=== PATIENT | male | born 1980 | race Caucasian/White ===

== ENCOUNTER 2019-05-13 13:56 | Outpatient (RCR) | payer BC | END 2019-05-15 | LOC: PT 13:56 | PROVIDERS: ATTEND Psychiatry & Neurology Clinical Neurophysiology | DX: G60.3 Idiopathic progressive neuropathy (principal); R26.89 Other abnormalities of gait and mobility; M62.81 Muscle weakness (generalized) ==

== ENCOUNTER 2019-06-02 14:00 | Outpatient (RCR) | payer BC | END 2019-06-14 | LOC: PT 14:00 | PROVIDERS: ATTEND Psychiatry & Neurology Clinical Neurophysiology | DX: G60.3 Idiopathic progressive neuropathy (principal); R26.89 Other abnormalities of gait and mobility; M62.81 Muscle weakness (generalized) ==

== ENCOUNTER 2019-06-30 10:00 | Outpatient (RCR) | payer BC | END 2019-07-15 | LOC: PT 10:00 | PROVIDERS: ATTEND Psychiatry & Neurology Clinical Neurophysiology | DX: G60.3 Idiopathic progressive neuropathy (principal); M62.81 Muscle weakness (generalized); R26.89 Other abnormalities of gait and mobility ==

== ENCOUNTER → 2019-07-23 | Outpatient (CLI) | payer BC | LOC: SLEEP 20:16 | PROVIDERS: ATTEND Family Medicine | DX: G47.52 REM sleep behavior disorder (principal); G43.119 Migraine with aura, intractable, without status migrainosus; G44.41 Drug-induced headache, not elsewhere classified, intractable; G60.3 Idiopathic progressive neuropathy | CPT/HCPCS: 95810 ==

== ENCOUNTER 2020-01-20 05:25 | Observation (INO) | payer BC ==
--- NOTE | 2020-01-17 10:29 | Diagnostic Imaging Report ---
EXAMINATION: CHEST 2 VIEWS INDICATION: Pre-operative COMPARISON: None FINDINGS: LINES/TUBES:None LUNGS:The lungs are hyperinflated. No focal consolidation or pulmonary edema. PLEURA:No pleural effusion or pneumothorax. MEDIASTINUM:The cardiomediastinal silhouette appears normal in size and shape. BONES/SOFT TISSUES:No acute osseous injury. Pectus excavatum. ABDOMEN:No free air under the diaphragm. IMPRESSION: Hyperinflated lungs and pectus excavatum. No focal pneumonia or pulmonary edema. Signed by: Priscilla Monroe MD on 01/17/2020 10:26 AM
[2020-01-17 10:39] LABS: BASOPHILS # (AUTO) 0.1 (0.0-0.1); BASOPHILS % 0.6 % (0.0-1.0); EOSINOPHILS % 0.5 % (0.0-6.0); HEMATOCRIT 46.6 % (38.2-49.6); HEMOGLOBIN 16.2 g/dL (14.0-18.0); LYMPHOCYTES # (AUTO) 1.5 (1.0-3.2); LYMPHOCYTES % 19.1 % (18.0-39.1); MEAN CORPUSCULAR HEMOGLOBIN 32.6 pg (28-32); MEAN CORPUSCULAR HGB CONC 34.8 g/dL (31-35); MEAN CORPUSCULAR VOLUME 93.8 fL (81-99); MONOCYTES # (AUTO) 0.7 (0.2-0.8); MONOCYTES % 8.5 % (4.4-11.3); NEUTROPHILS # (AUTO) 5.7 (2.1-6.9); NEUTROPHILS % 70.8 % (38.7-80.0); PLATELET COUNT 225 x10e3/uL (140-360); RED BLOOD COUNT 4.97 x10e6/uL (4.3-5.7); RED CELL DISTRIBUTION WIDTH 14.2 % (11.7-14.4)
[2020-01-17 10:57] LABS: INR 0.87; PROTHROMBIN TIME 12.3 seconds (11.9-14.5)
[2020-01-17 10:58] LABS: PARTIAL THROMBOPLASTIN TIME 22.4 seconds (23.8-35.5)
[2020-01-17 11:02] LABS: ANION GAP 14.1 mmol/L (8-16); BLOOD UREA NITROGEN 11 mg/dL (7-26); BUN/CREATININE RATIO 14 (6-25); CALCIUM 8.9 mg/dL (8.4-10.2); CARBON DIOXIDE 27 mmol/L (22-29); CHLORIDE 103 mmol/L (98-107); CREATININE, SERUM 0.78 mg/dL (0.72-1.25); EST GLOMERULAR FILTRATION RATE > 60 ML/MIN (60-); GLUCOSE 94 mg/dL (74-118); POTASSIUM 4.1 mmol/L (3.5-5.1); SODIUM 140 mmol/L (136-145)
[~2020-01-20] VITALS: Ht 193 cm; Wt 74.4 kg
[~2020-01-20 05:25] MED LIST: ATENOLOL50 MG PO; BACLOFEN10 MG PO; METHYLPREDNISOLO4 M1 PO; NUVIGIL200 MG PO; PROMETHAZINE HC25 M1 PO; REMICADE100 MG/VIA IV; SOMA350 MG PO; ULTRAM 50MG50 MG PO
--- OUTSIDE RECORDS SUMMARY | 2020-01-20 05:32 | XMS REPORT ---
Author Author [facility] Organization [facility] Address Unknown Phone Unavailable Care Team Providers Care Counter Supervisor Name Role Phone YARA DAWN DO PP PORFIRIO MCDUFFIE Unavailable Unavailable Payers Payer Name Policy Type Policy Number Effective Date Expiration D ate [employer] [place] P[place] [id number] 2018 00:00:00 [employer] [place] P[place] [id number] [employer] [place] P[place] [id number] Problems This patient has no known problems. Allergies, Adverse Reactions, Alerts Allergy Name Allergy Type Status Severity Reaction(s) Onset Date Inacti ve Date Treating Clinician Comments secukinumab DA Active GA 2019-03-16 00:00:00 No Known Allergies DA Active U 2017-04-02 00:00:00 Medications This patient has no known medications. Encounters Start Date/Time End Date/Time [facility]counter ID 2019-06-30 10:00:00 2019-07-15 23:59:00 Discharged Recurring [facility] [id number] 2019-05-20 15:17:00 2019-06-14 23:59:00 Discharged Recurring [facility] [id number] 2019-05-13 13:56:00 2019-05-15 23:59:00 Discharged Recurring [facility] [id number] Results Test Description Test Time Test Comments Text Results Atomic Results Result Comments CHEST 2 VIEWS 2020-01-17 10:24:00 [place] [address] Patient Name: ZELDA MULLER MR #: [id number] : 1980 Age/Sex: 39/M Req #: [id number] Adm Physician: Ordered by: PORFIRIO MCDUFFIE MD Report #: [id number] Location: OR Room/Bed: Procedure: [id number] DX/CHEST 2 VIEWS Exam Date: 01/17/20 Exam Time: 1009 REPORT STATUS: Signed EXAMINATION: CHEST 2 VIEWS INDICATION: Pre-operative COMPARISON: None FINDINGS: LINES/TUBES:None LUNGS:The lungs are hyperinflated. No focal consolidation or pulmonary edema. PLEURA:No pleural effusion or pneumothorax. MEDIA STINUM:The cardiomediastinal silhouette appears normal in size and shape. BONES/SOFT TISSUES:No acute osseous injury. Pectus excavatum. ABDOMEN:No free air under the diaphragm. IMPRESSION: Hyperinflated lungs and pectus excavatum. No focal pneumonia or pulmonary edema. Signed by: Elsa Medina MD on 01/17/2020 10:26 AM Dictated By: ELSA MEDINA MD 1026 Transcribed By: LILIAN on 01/17/20 1026 COPY TO: PORFIRIO MCDUFFIE MD - CT ABD PELVIS W/CONT 2019-03-16 22:20:00 Nam e: ZELDA MULLER [facility] : 1980 Age/S: 38 / M [address] [facility] Unit #: [id number] Loc: [place] [address] Phys: Kamilah Peace DO Acct: [id number] Dis Date: Status: REG ER PHONE #: [phone] Exam Date: 03/16/20192205 FAX #: [phone] Reason: ABD PAIN, TRAUMA EXAMS: CPT CODE: [id number] CT ABD PELVIS W/CONT 36793 REASON FOR EXAM: ABD PAIN, TRAUMA EXAM ORDER DATE: 03/16/2019 8:20 PM Ordering Makenna: Kamilah Peace DO PROCEDURE: - CT ABD PELVIS W/CONT COMPARISON: FINDINGS: CT images of the abdomen and pelvis were obtained with IV and without oral contrast at 5mm. Dose modulation, iterative reconstruction, and/or weight based adjustment of the MA/KV was utilized to reduce the radiation dose to as low as reasonably achievable. Intravenous contrast: 100cc of Omnipaque 370. The liver, spleen, pancreas are grossly within normal limits. The patient is status post cholecystectomy The left kidney is unremarkable. The right kidney located within the upper pelvis. The urinary bladder is unremarkable. The colon, small bowel, and stomach are within normal limits without evidence of obstruction. The appendix is unremarkable. No evidence of free air or free fluid. The uterus is unremarkable. IMPRESSION: No acute findings in the abdomen at 2220 Reported and signed by: Leo Burkett M.D. CC: Yara Dawn DO; Kamilah Peace DO Technologist:Daxa Burrows RT(R); MARYLIN Tobar CTDI: DLP: Trnscb Date/Time: 03/16/2019 (2220) [email or web address] Orig Print D/T: S: 03/16/2019 (6068) PAGE 1 Signed Report - CT CHEST W/CONTRAST 2019-03-16 22:18:00 Name : ZELDA MULLER [facility] : 1980 Age/S: 38 / M [address] [facility] Unit #: [id number] Loc: [place] [address] Phys: Kamilah Peace DO Acct: [id number] Dis Date: Status: REG ER PHONE #: [phone] Exam Date: 03/16/20192205 FAX #: [phone] Reason: CHEST PAIN, TRAUMA EXAMS: CPT CODE: [id number] CT CHEST W/CONTRAST 66801 REASON FOR EXAM: CHEST PAIN, TRAUMA EXAM ORDER DATE: 03/16/2019 8:20 PM Ordering Makenna: Kamilah Peace DO PROCEDURE: - CT CHEST W/CONTRAST FINDINGS: CT images of the chest were obtained with IV contrast. Reconstructed sagittal and coronal images of the chest were provided for interpretation. Dose modulation, iterative reconstruction, and/or weight based adjustment of the MA/KV was utilized to reduce the radiation dose to as low as r easonably achievable. Intravenous contrast: 100cc of Omnipaque 370. The heart size is within normal limits. No evidence of pericardial effusion The thoracic aorta is unremarkable. No evidence of dissection or aneurysmal dilatation. No filling defect seen within the main or lobar pulmonary arteries to suggest pulmonary embolus. No evidence of mediastinal or hilar adenopathy. The lungs are clear. No evidence of pleural effusion IMPRESSION: Deformity of the chest wall suggestive of pectus excavatum. No acute findings in the chest at 2218 Reported and signed by: Leo Burkett M.D. CC: Yara Dawn DO; Kamilah Peace DO Technologist:Daxa ONTIVEROS); MARYLIN Tobar CTDI: DLP: Trnscb Date/Time: 03/16/2019 (2218) [email or web address] Orig Print D/T: S: 03/16/2019 (1912) PAGE 1 Signed Report PROTHROMBIN TIME 2019-03-16 21:51:00 PROTHROMBIN TIME PATIENT (test code = PTP) 11.8 seconds 9.0-1 4.0 INTERNATIONAL NORMAL RATIO (test code = INR) 1.0 0.8 -1.2 The therapeutic range for oral anticoagulant therapy formost indications is an international normalized ratio (INR)of between 2.0 and 3.0. The recommended therapeutic INRrange for various clinical situations is listed below: Clinical Situation INR range Pulmonary e mbolism treatment (2.0-3.0)Venous thrombosis treatmentVenous thrombosis prophylaxis (high risk surgery)Prevention of systemic embolism from: Acute myocardial infarction Valvular heart disease Atrial fibrillation Mechanical prosthetic heart valves (2.5-3.5) IS PATIENT ON ANTICOAGULANTS? NTHROMBOPLASTIN TIME [id number] 21:51:00* Test Item Value Reference Range Comments THROMBOPLASTIN TIME PARTIAL (test code = PTT) 26.3 seconds 25 .0-36.5 IS PATIENT ON ANTICOAGULANTS? N- XR CHEST 1 [id number] 21:48:00 FAX: Yara Lyon DO [phone] [place]: St: [facility] FAX: Kamilah Peace DO Name: ZELDA MULLER [facility] : 1980 Age/S: 38/M [address] [facility] Unit #: [id number] Loc: [place] [address] Phys: Kamilah Peace DO Acct: [id number] Dis Date: Status: REG ER PHONE #: [phone] Exam Date: 03/16/20192141 FAX #: [phone] Reason: CHEST PAIN EXAMS: CPT CODE: [id number] XR CHEST 1 V 48619 REASON FOR EXAM: CHEST PAIN EXAM ORDER DATE: 03/16/2019 8:20 PM Ordering Makenna: Kamilah Peace DO PROCEDURE: - XR CHEST 1 V COMPARISON: FINDINGS: Portable AP frontal view of the chest obtained at 9:32 PM shows clear catarina ngs without evidence of consolidation. There is no evidence of effusion. T he heart size is within normal limits. Pulmonary vasculatures are unremark able. IMPRESSION: No active disease. at 2147 Reported a nd signed by: Leo Burkett M.D. CC: Yara Dawn DO; Kamilah Peace DO Technologist: Marylin LEYVA(Milvia) Trnscrd Date/Time/By: 03/16/2019 (2147) : By: KrystalL Orig Print D/T: S: 03/16/2019 (1803) PAGE 1 Signed Report - XR T-SPINE 3 VIEWS 2019-03-16 21:48:00 FAX: Yara Lyon DO [phone] [place]: St: REG FAX: Kamilah Peace DO Name: ZELDA MULLER [facility] : 1980 Age/S: 38/M [address] Unit #: [id number] Loc: [place] [address] Phys: Kamilah Peace DO Acct: [id number] Dis Date: Status: REG ER PHONE #: [phone] Exam Date: 03/16/20192141 FAX #: [phone] Reason: BACK PAIN EXAMS: CPT CODE: [id number] XR T-SPINE 3 VIEWS 52123 REASON FOR EXAM: BACK PAIN EXAM ORDER DATE: 03/16/2019 8:20 PM Ordering Makenna: Kamilah Peace DO PROCEDURE: - XR T-SPINE 3 VIEWS FINDINGS: 3 views of the thoracic spine were obtained. There is normal alignment of the thoracic spine. The vertebral bodies are unremarkable in size and shape. The disc spaces are maintained. No evidence of fracture. IMPRESSION: Unremarkable thoracic spine at 2148 Reported and signed by: Leo Burkett M.D. CC: Yara Dawn DO; Kamilah Peace DO Technologist: Marylin LEYVA(Milvia) Trnscrd Date/Time/By: 03/16/2019 (2147) : By: [email or web address] Orig Print D/T: S: 03/16/2019 (8) PAGE 1 Signed Report - XR L-SPINE 2/3 [id number] 21:47:00 FAX: Y Yara Dawn DO [phone] [place]: B St: REG FAX: Kamilah Peace DO Name: ZELDA MULLER [facility] : 1980 Age/S: 38/M [address] [facility] Unit #: [id number] Loc: [place] [address] Phys: Kamilah Peace DO Acct: [id number] Dis Date: Status: REG ER PHONE #: [phone] Exam Date: 03/16/20192141 FAX #: [phone] Reason: BACK PAIN EXAMS: CPT CODE: [id number] XR L-SPINE 2/3 VIEWS 04885 REASON FOR EXAM: BACK PAIN EXAM ORDER DATE: 03/16/2019 8:20 PM Ordering Makenna: Kamilah Peace DO PROCEDURE: - XR L-SPINE 2/3 VIEWS FINDINGS: 3 views of the lumbar spine were obtained. There is normal alignment of the lumbar spine. The vertebral bodies are unremarkable in size and shape. T he disc spaces are maintained. No evidence of fracture. IMPRESSION: Unremarkable lumbar spine at 2147 Reported and signed by: Jakob Burkett M.D. CC: Yara Dawn DO; Kamilah Peace DO Technologist: Marylin LEYVA(R) Trnscrd Date/Time/By: 03/16/2019 (2146) : By: KrystalL Orig Print D/T: S: 03/16/2019 (9224) PAGE 1 Signed Report - XR PELVIS 1/2 [id number] 21:47:00 FAX: Yara Lyon DO [phone] [place]: B St: REG FAX: Kamilah Peace DO Name: ZELDA MULLER [facility] : 1980 Age/S: 38/M [address] [facility] Unit #: [id number] Loc: [place] [address] Phys: Kamilah Peace DO Acct: [id number] Dis Date: Status: REG ER PHONE #: [phone] Exam Date: 03/16/20192141 FAX #: [phone] Reason: PELVIC PAIN EXAMS: CPT CODE: [id number] XR PELVIS 1/2 VIEWS 75018 REASON FOR EXAM: PELVIC PAIN EXAM ORDER DATE: 03/16/2019 8:20 PM Ordering Makenna: Kamilah Peace DO PROCEDURE: - XR PELVIS 1/2 VIEWS FINDINGS: 1 view of the pelvis was obtained. The osseous structures are unremarkable in size and shape. The joint spaces are maintained. No evidence of fracture. There is normal alignment of the hip joint. The sacroiliac joints are grossly intact IMPRESSION: Unremarkable pelvis at 2147 Reported and signed by: Leo Burkett M.D. CC: Yara Dawn DO; Kamilah Peace DO Technologist: Marylin Giordano RT(R) Trnscrd Date/Time/By: 03/16/2019 (2146) : By: AriVTL Orig Print D/T: S: 03/16/2019 (3840) PAGE 1 Signed Report BASIC METABOLIC [id number] 21:46:00* Test Item Value Reference Range Comments SODIUM (test code = NA) 139 mmol/L 136-145 POTASSIUM (test code = K) 3.5 mmol/L 3.5-5.1 CHLORIDE (test code = CL) 107.0 mmol/L 98-107 CARBON DIOXIDE (test code = CO2) 24.0 mmol/L 21-32 ANION GAP (test code = GAP) 11.5 10-20 GLUCOSE (test code = GLU) 102 mg/dL 74-106 BLOOD UREA NITROGEN (test code = BUN) 9 mg/dL 7-18 GLOMERULAR FILTRATION RATE (test code = GFR) > 60 mL/min >=6 0 Estimated GFR by using Modified MDRD formula.Chronic kidney disease is defined as either kidney damageor GFR <60 mL/min/1.73 m2 for >3 months. CREATININE (test code = CREAT) 0.70 mg/dL 0.7-1.3 BUN/CREATININE RATIO (test code = BUN/CREA) 12.9 10-2 0 CALCIUM (test code = CA) 8.7 mg/dL 8.5-10.1 HEPATIC FUNCTION [id number] 21:46:00* Test Item Value Reference Range Comments TOTAL PROTEIN (test code = PROT) 7.0 gram/dL 6.4-8.2 ALBUMIN (test code = ALB) 3.9 g/dL 3.4-5.0 GLOBULIN (test code = GLOB) 3.1 gram/dL 2.7-4.2 ALBUMIN/GLOBULIN RATIO (test code = A/G) 1.3 0.75-1. 50 BILIRUBIN TOTAL (test code = BILT) 0.40 mg/dL 0.0-1.0 BILIRUBIN DIRECT (test code = BILD) 0.15 mg/dL 0.0-0.20 SGOT/AST (test code = AST) 15 IUnit/L 15-37 SGPT/ALT (test code = ALT) 30 IUnit/L 12-78 ALKALINE PHOSPHATASE TOTAL (test code = ALKP) 88 IUnit/L 45 -117 Note change in reference range due to change in reagent. [id number] 21:46:00* Test Item Value Reference Range Comments LIPASE (test code = LIP) 132 U/L 73.0-393.0 [id number] 21:46:00* Test Item Value Reference Range Comments TROPONIN-I (test code = TROPI) <0.015 ng/mL 0-0.045 BASIC METABOLIC [id number] 21:29:00* Test Item Value Reference Range Comments SODIUM (test code = NA) 139 mmol/L 136-145 POTASSIUM (test code = K) 3.5 mmol/L 3.5-5.1 CHLORIDE (test code = CL) 107.0 mmol/L 98-107 CARBON DIOXIDE (test code = CO2) mmol/L 21-32 ANION GAP (test code = GAP) 10-20 GLUCOSE (test code = GLU) mg/dL 74-106 BLOOD UREA NITROGEN (test code = BUN) mg/dL 7-18 GLOMERULAR FILTRATION RATE (test code = GFR) mL/min >=6 0 CREATININE (test code = CREAT) mg/dL 0.7-1.3 BUN/CREATININE RATIO (test code = BUN/CREA) 10-2 0 CALCIUM (test code = CA) mg/dL 8.5-10.1 HEPATIC FUNCTION [id number] 21:29:00* Test Item Value Reference Range Comments TOTAL PROTEIN (test code = PROT) gram/dL 6.4-8.2 ALBUMIN (test code = ALB) g/dL 3.4-5.0 GLOBULIN (test code = GLOB) gram/dL 2.7-4.2 ALBUMIN/GLOBULIN RATIO (test code = A/G) 0.75-1. 50 BILIRUBIN TOTAL (test code = BILT) mg/dL 0.0-1.0 BILIRUBIN DIRECT (test code = BILD) mg/dL 0.0-0.20 SGOT/AST (test code = AST) IUnit/L 15-37 SGPT/ALT (test code = ALT) IUnit/L 12-78 ALKALINE PHOSPHATASE TOTAL (test code = ALKP) IUnit/L 45 -117 [id number] 21:29:00* Test Item Value Reference Range Comments LIPASE (test code = LIP) U/L 73.0-393.0 [id number] 21:29:00* Test Item Value Reference Range Comments TROPONIN-I (test code = TROPI) ng/mL 0-0.045 CBC W/O [id number] 21:23:00* Test Item Value Reference Range Comments WHITE BLOOD CELL (test code = WBC) 6.3 K/mm3 4.5-12.5 RED BLOOD CELL (test code = RBC) 4.42 mill/mm3 4.0-5.8 HEMOGLOBIN (test code = HGB) 14.4 gram/dL 13.0-17.5 HEMATOCRIT (test code = HCT) 41.9 % 42.0-52.0 MEAN CELL VOLUME (test code = MCV) 94.8 fL 80-98 MEAN CELL HGB (test code = MCH) 32.6 picogram 27.0-33.0 MEAN CELL HGB CONCETRATION (test code = MCHC) 34.4 gram/dL 33 .0-36.0 RED CELL DISTRIBUTION WIDTH (test code = RDW) 13.2 % 11 .6-16.2 PLATELET COUNT (test code = PLT) 195 K/mm3 150-450 MEAN PLATELET VOLUME (test code = MPV) 10.9 fL 6.7-11.0 CBC W/O [id number] 21:21:00* Test Item Value Reference Range Comments WHITE BLOOD CELL (test code = WBC) K/mm3 4.5-12.5 RED BLOOD CELL (test code = RBC) mill/mm3 4.0-5.8 HEMOGLOBIN (test code = HGB) 14.4 gram/dL 13.0-17.5 HEMATOCRIT (test code = HCT) % 42.0-52.0 MEAN CELL VOLUME (test code = MCV) fL 80-98 MEAN CELL HGB (test code = MCH) picogram 27.0-33.0 MEAN CELL HGB CONCETRATION (test code = MCHC) gram/dL 33 .0-36.0 RED CELL DISTRIBUTION WIDTH (test code = RDW) % 11 .6-16.2 PLATELET COUNT (test code = PLT) K/mm3 150-450 MEAN PLATELET VOLUME (test code = MPV) fL 6.7-11.0 - CT C-SPINE W/O [id number] 20:51:00 Name: ZELDA MULLER [facility] : 1980 Age/S: 38 / M [address] [facility] Unit #: [id number] Loc: [place] [address] Phys: Kamilah Peace DO Acct: [id number] Dis Date: Status: PRE ER PHONE #: [phone] Exam Date: 03/16/20192044 FAX #: [phone] Reason: Neck Pain EXAMS: CPT CODE: [id number] CT C-SPINE W/O CONTRAST 68607 REASON FOR EXAM: Neck Pain EXAM ORDER DATE: 03/16/2019 8:20 PM Ordering MSandro: Kamilah Peace DO PROCEDURE: - CT C-SPINE W/O CONTRAST FINDINGS: CT images of the cervical spine were obtained without IV contrast at 2.5mm. Reconstructed coronal and sagittal images were also provided. Dose modulation, iterative reconstruction, and/or weight based adjustment of the MA/KV was utilized to reduce the radiation dose to as low as reasonably achievable. The osseous structures are intact. Osteophytes are seen at C5-6 The central canal is patent. Minimal narrowing of C5-6 disc space IMPRESSION: Minimal degenerative changes and disc disease at C5-6. at 2050 Reported and sig dillon by: Leo Burkett M.D. CC: Yara Dawn DO; Kamilah Peace DO Technologist:Daxa LEYVA(R); MARYLIN Tobar CTDI: DLP: Trnscb Date/Time: 03/16/2019 (2050) Jesenia Orig Print D/T: S: 03/16/2019 (2053) PAGE 1 Signed Report - CT HEAD/BRAIN W/O [id number] 20:47:00 Name: ZELDA MULLER [facility] : 1980 Age/S: 38 / M [address] Unit #: [id number] Loc: [place] [address] Phys: Chucho Peace hiwotcheryl REYEZ Acct: [id number] Di s Date: Status: PRE ER PHONE #: Exam Date: 03/16/20192044 FAX #: Reason: HEADACHE EXAMS: CPT CODE: [id number] CT HEAD/BRAIN W/O CONT 03537 REASON FOR EXAM: HEADACHE EXAM ORDER DATE: 03/16/2019 8:20 PM Ordering MSandro: Kamilah Peace DO PROCEDURE: - CT HEAD/BRAIN W/O CONT COMPARISON: FINDINGS: CT images of the brain were obtai dillon without IV contrast. Dose modulation, iterative reconstruction, and/o r weight based adjustment of the MA/KV was utilized to reduce the radiatio n dose to as low as reasonably achievable. The brain parenc hyma is within normal limits. The kothari-white matter delineation is unremar kable. The ventricles, cisterns, and sulci are unremarkable. There is no e vidence of hemorrhage, mass, mass effect. There is no evidence of acute o r old infarct. The calvarium is intact. IMPRESSION: Unrem arkable brain. Electronically Signed by Makenna Burkett on at 2046 Reported and signed by: Leo Burkett M.D. CC: Yara Dawn DO; Kamilah Peace DO Technol ogist:Daxa Burrows RT(R); MARYLIN Tobar CTDI: DLP: Trnscb Date/Time: 03/16/2019 (2046) Jesenia Orig Print D/T: S: 03/16/2019 (2049) PAGE 1 Signed Report
[2020-01-20] MEDS ORDERED: CEFAZOLIN SOD 1 GM/NS 50ML 100 ML IV ONE (05:52)
[2020-01-20] MEDS ORDERED: THROMBIN FOR SOLN 5,000 UNIT VIAL ONE (06:26)
[2020-01-20] MEDS ORDERED: BUPIVACAINE 0.5%/EPI 30 ML SDV INJ ONE (06:26)
[2020-01-20] MEDS ORDERED: BACITRACIN 50,000 UNIT VIAL ONE (06:26)
[2020-01-20] MEDS ORDERED: LIDOCAINE HCL (LTA) 4 ML SOLN ONE (07:09)
[2020-01-20] MEDS ORDERED: ACETAMINOPHEN 1000 MG/100 ML 100 ML IV ONE (07:09)
[2020-01-20] MEDS ORDERED: ACETAMINOPHEN 325 MG TAB PO PRN (09:00)
[2020-01-20] MEDS ORDERED: OXYCODONE/ACETAMINOPHEN 5-325 1 EACH TABLET PO PRN ×2 (09:00→14:00)
[2020-01-20] MEDS ORDERED: ZOLPIDEM TARTRATE 5 MG TAB PO PRN (09:00)
[2020-01-20] MEDS ORDERED: CARISOPRODOL 350 MG TAB PO PRN (09:00)
[2020-01-20] MEDS ORDERED: MAGNESIUM/ALUMINUM/SIMETHICONE 30 ML UDC PO PRN (09:00)
[2020-01-20] MEDS ORDERED: PROMETHAZINE HCL 25 MG TAB PO PRN (09:00)
[2020-01-20] MEDS ORDERED: CARISOPRODOL 350 MG TAB PO SCH (09:00)
[2020-01-20] MEDS ORDERED: PROMETHAZINE HCL (IM) 25 MG/ML VIAL IM PRN (09:00)
[2020-01-20] MEDS ORDERED: MORPHINE SULFATE INJ 4 MG/ML INJ 1ML IM PRN (09:00)
[2020-01-20] MEDS: ONDANSETRON HCL INJ 2MG/ML 2ML 2 MG/ML VIAL IV PRN (09:17)
[2020-01-20] MEDS ORDERED: METOCLOPRAMIDE HCL 10 MG/2ML VIAL ONE (09:17)
[2020-01-20] MEDS ORDERED: HYDROMORPHONE 1MG/1ML INJ ONE (09:49)
[2020-01-20] MEDS ORDERED: FENTANYL CITRATE/PF 100MCG/2 ML INJ ONE ×2 (13:07→14:29)
[2020-01-20 13:32] VITALS: BP 117/61
--- NOTE | 2020-01-20 13:32 | NUR ---
Patient arrive to the unit at 1332 via stretcher. Patient in stable condition, no s/s of distress noted. bed in lowest position and locked. Call light within reach.
[2020-01-20 13:58] VITALS: BP 117/61
[2020-01-20] MEDS ORDERED: MIDAZOLAM HCL 2 MG/2 ML VIAL ONE (14:29)
[2020-01-20 14:37] VITALS: BP 117/61
[2020-01-20] MEDS: TRAMADOL HCL 50 MG TAB PO SCH ×2 (14:54→21:27)
[2020-01-20] MEDS: LACTATED RINGER'S 1,000 ML IV SCH ×2 (14:54→23:49)
[2020-01-20] MEDS: CEFAZOLIN SOD 1 GM/NS 50ML 50 ML IV SCH ×2 (14:54→21:27)
--- NOTE | 2020-01-20 14:59 | Operative Report ---
DATE OF PROCEDURE: 01/20/2020 SURGEON: Jl Brooks MD PREOPERATIVE DIAGNOSIS: C6-7 disk herniation with radiculopathy, M50.123. POSTOPERATIVE DIAGNOSIS: C6-7 disk herniation with radiculopathy, M50.123. PROCEDURES: 1. C6-7 anterior cervical diskectomy and allograft fusion, 15139. 2. Preparation of MTF corticocancellous allograft, 05126. 3. C6-C7 anterior cervical plating with Synthes DPM plate, 91358. ANESTHESIA: General. INDICATIONS: The patient is a 39-year-old man, who presents with severe left C7 radiculopathy due to a large left C6-7 disk herniation. He was taken to surgery for a C6-7 ACDF. PROCEDURE IN DETAIL: After induction of anesthesia, the patient was placed on the operating table in supine position. The right side of the neck was prepped and draped in sterile fashion. The fluoroscopic C-arm was positioned in cross-table lateral orientation. A transverse incision was created on the right side of neck superimposed on the C6-C7 disk space as determined by fluoroscopy. The platysma was divided in line with the incision. A subplatysmal dissection was carried out. An avascular plane of dissection was developed medial to the sternocleidomastoid muscle and was followed medial to the carotid sheath to the anterior border of cervical spine. The deep cervical fascia was opened. The esophagus was retracted to the left. The attachments of longus colli muscles to the anterolateral aspects of vertebral bodies of C6 and C7 were divided. The anterior longitudinal ligament was resected. [place] posts were inserted in C6 and C7. The [place] distractor was used to distract the disk space. The anterior annulus of this was incised with a #11 blade. The contents of the disks were thoroughly evacuated with angled curettes and pituitary rongeurs. The posterior osteophytes were meticulously drilled with a 2 mm cutting bur and a high-speed drill until they were completely removed. The posterior annulus of the disk, herniated disk material, and the posterior longitudinal ligament were resected layer by layer until the dura was fully exposed and decompressed. The medial aspects of the uncinate processes were resected bilaterally to expose origins of the C7 nerve root. A large amount of herniated disk material was retrieved and removed from the left C7 neural foramen. Excellent decompression was achieved. The endplates were prepared for fusion. The disk space was far sized and found to be 8 mm in height. A piece of MTF corticocancellous allograft measuring 8 mm in thickness was selected and prepared in saline and loaded onto a corresponding Synthes ZPN plate. The construct was inserted into the C6-C7 disk space under distraction and fluoroscopic guidance. The distraction was released and distraction posts were removed. The plate was then screwed to the endplates of C6 and C7 with two pairs of 14 mm screws. All screws were locked and excellent construct was obtained. The wound was copiously irrigated with bacitracin solution. Meticulous hemostasis was secured. Retraction was removed. The platysma was closed with 3-0 Vicryl sutures. The skin was closed with 4-0 Monocryl sutures in subcuticular fashion. Steri-Strips and dressing applied. The patient was awakened, extubated, and taken to postanesthesia care unit in stable condition. No intraoperative complications were encountered. Estimated blood loss was minimal. Jl Brooks MD PP/ANNA /[id number]
[2020-01-20 15:50] VITALS: BP 119/69
[2020-01-20] MEDS: BACLOFEN 10 MG TAB PO SCH (16:44)
[2020-01-20] MEDS: HYDROMORPHONE 2MG/ML 2 MG/ML ML IV PRN ×2 (17:10→22:12)
[2020-01-20] MEDS ORDERED: PROPOFOL IV EMULSION 10 MG/ML 20 ML VIAL ONE (18:11)
[2020-01-20] MEDS ORDERED: LIDOCAINE HCL 2% LOCAL INJ 5 ML SDV VIAL INJ ONE (18:11)
[2020-01-20] MEDS ORDERED: SEVOFLURANE INHAL SOLN 250 ML PEN BTL ONE (18:11)
[2020-01-20] MEDS ORDERED: DEXAMETHASONE SOD PHOS INJ 4 MG/ML VIAL ONE (18:11)
[2020-01-20] MEDS ORDERED: NEOSTIGMINE 1 MG/ML 10ML VIAL ONE (18:11)
[2020-01-20] MEDS ORDERED: GLYCOPYRROLATE INJ 0.2 MG/ML VIAL ONE (18:11)
[2020-01-20] MEDS ORDERED: ONDANSETRON HCL INJ 2MG/ML 2ML 2 MG/ML VIAL ONE (18:11)
[2020-01-20] MEDS ORDERED: ROCURONIUM BROMIDE 10 MG/ML 5ML VIAL IV ONE (18:11)
--- NOTE | 2020-01-20 19:26 | NUR ---
Completed bedside shift report and rounding with oncoming nurse. Patient in stable condition, no s/s of distress noted. No pain voiced. IV fluids infusing site asymptomatic and patent with transparent dressing C/D/I. Bed in lowest position and locked. Call light within reach. All personal items within reach.
[2020-01-20 20:00] VITALS: BP 109/64
--- NOTE | 2020-01-20 20:23 | NUR ---
RECEIVED PT IN BED AOX3 PT HAS C6-C7 DISK FUSION DRESSING TO THE NECK DRY AND INTACT ,DENIES PAIN CALL LIGHT WITH IN REACH .CONTINUE TO MONITOR
[2020-01-20 20:28] VITALS: BP 119/69
[2020-01-20] MEDS ORDERED: ATENOLOL 50 MG TAB PO SCH (21:00)
[2020-01-21] VITALS: BP 102/61
[2020-01-21] MEDS: HYDROMORPHONE 2MG/ML 2 MG/ML ML IV PRN ×2 (03:03→08:36)
[2020-01-21 04:00] VITALS: BP 112/72
--- NOTE | 2020-01-21 05:40 | NUR ---
PT C/O PAIN GIVEN ORDERED PAIN MEDICATION .CALL LIGHT WITH IN REACH .CONTINUE TO MONITOR
[2020-01-21] MEDS: CEFAZOLIN SOD 1 GM/NS 50ML 50 ML IV SCH (05:49)
[2020-01-21] MEDS: TRAMADOL HCL 50 MG TAB PO SCH (05:50)
[2020-01-21] MEDS: LACTATED RINGER'S 1,000 ML IV SCH (06:40)
--- NOTE | 2020-01-21 07:00 | NUR ---
Received bedside shift report from off going nurse. Patient in stable condition, no s/s of distress noted. No pain voiced. IV fluids infusing site asymptomatic and patent with transparent dressing C/D/I. Bed in lowest position and locked. Call light within reach. All personal items within reach.
--- NOTE | 2020-01-21 07:18 | NUR ---
BEDSIDE REPORT GIVEN TO THE ONCOMING NURSE
[2020-01-21 08:00] VITALS: BP 98/69
[2020-01-21 08:02] VITALS: BP 98/69
[2020-01-21] MEDS: BACLOFEN 10 MG TAB PO SCH (08:31)
[2020-01-21] MEDS: ONDANSETRON HCL INJ 2MG/ML 2ML 2 MG/ML VIAL IV PRN (08:35)
[2020-01-21] MEDS ORDERED: ARMODAFINIL 250 MG PO SCH (09:00)
--- NOTE | 2020-01-21 10:37 | Diagnostic Imaging Report ---
X-ray C-spine History: Postop Findings: AP and lateral views of the C-spine. Status post C6-C7 intervertebral prosthetic disc placement. The C6-C7 vertebrae are in near anatomic alignment. The cervical vertebrae are in anatomic alignment. Degenerative disc disease changes with osteophyte formation are noted at C5-C6 and C4-C5 levels also. Trace amount of linear air densities in the prevertebral space likely represent postoperative changes. Impression: Post C6-C7 fusion with Signed by: Rickey Santoyo MD on 01/21/2020 10:33 AM
[2020-01-21] MEDS ORDERED: NORCO 7.5-3251 EACH PO (10:45)
[2020-01-21] MEDS ORDERED: DIPHENHYDRAMINE HCL INJ 50 MG/ML VIAL IV ONE (10:55)
[2020-01-21 11:35] VITALS: BP 117/79
--- NOTE | 2020-01-21 13:35 | NUR ---
Patient discharged home- Patient off the unit @ 1332 via wheelchair accompanied by PCT to the lobby. Patient in stable condition, no s/s of distress noted. No pain voiced, IV access removed with tip intact. All personal belongings taken with patient. Prescription given to patient with discharge packet. Discharge teaching and instructions given to the patient. Patient verbalized understanding.
== END 2020-01-21 13:32 | disposition home or self-care (01) ==
LOC: OR 05:25 → PACU V 08:59 → MED/SURG 13:31
PROVIDERS: ADMIT Neurological Surgery; ATTEND Neurological Surgery
DX: M50.023 Cervical disc disorder at C6-C7 level with myelopathy (principal); Z88.8 Allergy status to other drugs, medicaments and biological substances; Z91.048 Other nonmedicinal substance allergy status; M19.90 Unspecified osteoarthritis, unspecified site; E03.9 Hypothyroidism, unspecified; I10 Essential (primary) hypertension; M45.9 Ankylosing spondylitis of unspecified sites in spine; M35.00 Sjogren syndrome, unspecified; L40.50 Arthropathic psoriasis, unspecified; G43.909 Migraine, unspecified, not intractable, without status migrainosus; Z90.49 Acquired absence of other specified parts of digestive tract; G47.33 Obstructive sleep apnea (adult) (pediatric); Z01.810 Encounter for preprocedural cardiovascular examination; Z01.812 Encounter for preprocedural laboratory examination; Z01.818 Encounter for other preprocedural examination; Z11.59 Encounter for screening for other viral diseases
CPT/HCPCS: 20931; 22551; 22845; 36415; 71046; 72040; 77003; 80048; 85025; 85610; 85730; 86850; 86900; 87635; 88304; 93005; G0378 ×2; J0131; J0690 ×2; J1100; J1170 ×3; J1200; J2001; J2250; J2405 ×2; J2550; J2704; J2710; J2765; J3010; J7121

== ENCOUNTER → 2020-02-17 | Outpatient (CLI) | payer BC ==
[~2020-02-17] MED LIST changes: +NORCO 7.5-3251 EACH PO
--- NOTE | 2020-02-17 13:56 | Diagnostic Imaging Report ---
EXAM: SPINE CERVICAL AP LAT FLEX EXT DATE: 02/17/2020 1:25 PM INDICATION: Postop, cervical disc hernia COMPARISON: 01/21/2020 FINDINGS: Again identified are post surgical changes from anterior instrumented fusion at C6-C7. Hardware appears intact and in stable position. There is no evidence for acute fracture or dislocation. Cervical spinal alignment is within normal limits. Vertebral body heights are maintained. No focal lytic or blastic abnormality is identified. There are stable degenerative changes present with anterior osteophyte production between C4-C6. The prevertebral soft tissues are unremarkable. The lung apices are clear. IMPRESSION: Stable postoperative changes from C6-C7 fusion. Signed by: Dr. Bismark Dale MD on 02/17/2020 1:52 PM
== END ==
LOC: RAD 13:25
PROVIDERS: ATTEND Neurological Surgery
DX: M50.20 Other cervical disc displacement, unspecified cervical region (principal); M43.22 Fusion of spine, cervical region
CPT/HCPCS: 72050

== ENCOUNTER 2022-04-04 05:51 | Observation (INO) | payer BC ==
[2022-04-02 11:46] LABS: BASOPHILS # (AUTO) 0.1 (0.0-0.1); EOSINOPHILS # (AUTO) 0.3 (0.0-0.4); HEMATOCRIT 46.3 % (38.2-49.6); HEMOGLOBIN 15.9 g/dL (14.0-18.0); LYMPHOCYTES # (AUTO) 2.1 (1.0-3.2); LYMPHOCYTES % 34.3 % (18.0-39.1); MEAN CORPUSCULAR HEMOGLOBIN 32.6 pg (28-32); MEAN CORPUSCULAR HGB CONC 34.3 g/dL (31-35); MEAN CORPUSCULAR VOLUME 95.1 fL (81-99); MONOCYTES # (AUTO) 0.6 (0.2-0.8); MONOCYTES % 9.8 % (4.4-11.3); NEUTROPHILS % 49.6 % (38.7-80.0); PLATELET COUNT 203 x10e3/uL (140-360); RED BLOOD COUNT 4.87 x10e6/uL (4.3-5.7); RED CELL DISTRIBUTION WIDTH 12.4 % (11.7-14.4)
[2022-04-02 12:07] LABS: ANION GAP 14.3 mmol/L (8-16); CALCIUM 8.3 mg/dL (8.4-10.2); CREATININE, SERUM 0.77 mg/dL (0.72-1.25); POTASSIUM 4.3 mmol/L (3.5-5.1)
[2022-04-02 12:16] LABS: INR 0.89; PROTHROMBIN TIME 12.9 seconds (11.9-14.5)
[2022-04-02 12:17] LABS: PARTIAL THROMBOPLASTIN TIME 26.3 seconds (23.8-35.5)
[2022-04-04] VITALS (7 sets, daily range): BP systolic 101–114; BP diastolic 66–79
[~2022-04-04] VITALS: Ht 193 cm; Wt 83.9 kg
[~2022-04-04 05:51] MED LIST changes: +ABILIFY20 MG PO; +CYMBALTA30 MG PO; +FELDENE10 MG PO; +GABAPENTIN400 MG PO; +PAMELOR25 MG PO; +RESTORIL15 MG PO
[2022-04-04] MEDS ORDERED: THROMBIN FOR SOLN 5,000 UNIT VIAL ONE (06:35)
[2022-04-04] MEDS ORDERED: Vancomycin IV 1 GM VIAL ONE (06:35)
[2022-04-04] MEDS ORDERED: LIDOCAINE 2% /EPINEPHRINE 20 ML SDV INJ ONE (07:08)
[2022-04-04] MEDS ORDERED: Morphine 10mg syringe 10 MG/ML INJ IM PRN (08:15)
[2022-04-04] MEDS ORDERED: OXYCODONE/ACETAMINOPHEN 5-325 1 EACH TABLET PO PRN (08:15)
[2022-04-04] MEDS ORDERED: ACETAMINOPHEN 325 MG TAB PO PRN (08:15)
[2022-04-04] MEDS ORDERED: MAGNESIUM/ALUMINUM/SIMETHICONE 30 ML UDC PO PRN (08:15)
[2022-04-04] MEDS ORDERED: PROMETHAZINE HCL (IM) 25 MG/ML VIAL IM PRN (08:15)
[2022-04-04] MEDS ORDERED: ZOLPIDEM TARTRATE 5 MG TAB PO PRN (08:15)
[2022-04-04] MEDS ORDERED: PROMETHAZINE HCL 25 MG TAB PO PRN (08:15)
[2022-04-04] MEDS ORDERED: TRAMADOL HCL 50 MG TAB PO SCH (08:15)
[2022-04-04] MEDS ORDERED: ONDANSETRON HCL INJ 2MG/ML 2ML 2 MG/ML VIAL IV PRN (08:15)
[2022-04-04] MEDS ORDERED: CARISOPRODOL 350 MG TAB PO PRN (08:15)
[2022-04-04] MEDS ORDERED: HYDROCODON-ACE1 EA12 PO (08:16)
[2022-04-04] MEDS ORDERED: FENTANYL CITRATE/PF 100MCG/2 ML INJ ONE ×3 (08:35→14:00)
[2022-04-04] MEDS ORDERED: FELODIPINE 5 MG TAB CR PO SCH (09:00)
[2022-04-04] MEDS: ARIPIPRAZOLE 5 MG TABLET PO SCH (09:00)
[2022-04-04] MEDS: ARMODAFINIL 250 MG PO SCH (09:00)
[2022-04-04] MEDS: CARISOPRODOL 350 MG TAB PO SCH (09:53)
[2022-04-04] MEDS: GABAPENTIN 300 MG CAP PO SCH (09:54)
[2022-04-04] MEDS ORDERED: OXYCODONE/ACETAMINOPHEN 5-325 1 EACH TABLET ONE (10:01)
[2022-04-04] MEDS ORDERED: CARISOPRODOL 350 MG TAB ONE (10:02)
[2022-04-04] MEDS ORDERED: Morphine 10mg syringe 10 MG/ML INJ ONE (12:08)
[2022-04-04] MEDS ORDERED: SEVOFLURANE INHAL SOLN 250 ML PEN BTL ONE (13:00)
[2022-04-04] MEDS ORDERED: POVIDONE IODINE 0.05% 0.05 % ML PO ONE (13:00)
[2022-04-04] MEDS ORDERED: ACETAMINOPHEN 1000 MG/100 ML IV ONE (13:00)
[2022-04-04] MEDS ORDERED: DEXAMETHASONE SOD PHOS INJ 4 MG/ML SDV ONE (13:00)
[2022-04-04] MEDS ORDERED: LIDOCAINE HCL 2% LOCAL INJ 5 ML SDV VIAL INJ ONE (13:00)
[2022-04-04] MEDS ORDERED: ROCURONIUM BROMIDE 10 MG/ML 5ML VIAL IV ONE (13:00)
[2022-04-04] MEDS ORDERED: PROPOFOL IV EMULSION 10 MG/ML 20 ML VIAL ONE (13:00)
[2022-04-04] MEDS ORDERED: ONDANSETRON HCL INJ 2MG/ML 2ML 2 MG/ML VIAL ONE (13:00)
[2022-04-04] MEDS ORDERED: IBUPROFEN 800 MG/200 ML BAG IV ONE (13:00)
[2022-04-04] MEDS ORDERED: SUGAMMADEX SODIUM 200 MG/2 ML VIAL IV ONE (13:00)
[2022-04-04] MEDS ORDERED: MIDAZOLAM HCL 2 MG/2 ML VIAL ONE (14:00)
[2022-04-04] MEDS: HYDROMORPHONE 2MG/ML 2 MG/ML ML IV PRN ×3 (14:35→23:39)
[2022-04-04] MEDS: NORTRIPTYLINE HCL 25 MG CAP PO SCH ×3 (14:37→21:00)
[2022-04-04] MEDS: DULOXETINE HCL 30 MG DELAYED RELEASE PO SCH (14:37)
[2022-04-04] MEDS: LACTATED RINGER'S 1,000 ML IV SCH ×2 (14:38→16:35)
[2022-04-04] MEDS ORDERED: TEMAZEPAM 15 MG CAP PO SCH (21:00)
[2022-04-05] MEDS: LACTATED RINGER'S 1,000 ML IV SCH (00:55)
[2022-04-05 05:48] VITALS: BP 113/79
[2022-04-05] MEDS: HYDROMORPHONE 2MG/ML 2 MG/ML ML IV PRN (06:08)
[2022-04-05 07:43] VITALS: BP 111/72
[2022-04-05] MEDS ORDERED: SODIUM CHLORIDE 0.9% 250ML 250 ML ONE (07:58)
[2022-04-05] MEDS: ARMODAFINIL 250 MG PO SCH (08:06)
[2022-04-05 08:19] VITALS: BP 111/72
[2022-04-05] MEDS: NORTRIPTYLINE HCL 25 MG CAP PO SCH (08:33)
[2022-04-05] MEDS: GABAPENTIN 300 MG CAP PO SCH (08:33)
[2022-04-05] MEDS: CARISOPRODOL 350 MG TAB PO SCH (08:33)
[2022-04-05] MEDS: DULOXETINE HCL 30 MG DELAYED RELEASE PO SCH (08:34)
[2022-04-05] MEDS: ARIPIPRAZOLE 5 MG TABLET PO SCH (08:34)
== END 2022-04-05 09:45 | disposition home or self-care (01) ==
LOC: OR 05:51 → PACU V 08:15 → MED/SURG 12:12
PROVIDERS: ADMIT Neurological Surgery; ATTEND Neurological Surgery
DX: M50.13 Cervical disc disorder with radiculopathy, cervicothoracic region (principal); Z01.810 Encounter for preprocedural cardiovascular examination; Z01.812 Encounter for preprocedural laboratory examination; Z01.818 Encounter for other preprocedural examination; Z20.822 Contact with and (suspected) exposure to COVID-19; F41.9 Anxiety disorder, unspecified; E03.9 Hypothyroidism, unspecified; I10 Essential (primary) hypertension; M35.00 Sjogren syndrome, unspecified; L40.50 Arthropathic psoriasis, unspecified; M54.81 Occipital neuralgia; G43.909 Migraine, unspecified, not intractable, without status migrainosus; Z90.49 Acquired absence of other specified parts of digestive tract
CPT/HCPCS: 0223U; 20931; 22551; 22845; 36415; 71046; 72040; 76000; 80048; 85025; 85610; 85730; 86850; 86900; 88304; 88311; 93005; C1713 ×3; G0378 ×2; J0131; J0690 ×2; J1100; J1170 ×2; J2001 ×2; J2250; J2270; J2405; J2704; J3010; J3370; J7050; J7121